=== PATIENT | male | born 1960 | race Caucasian/White ===

== ENCOUNTER 2018-12-25 15:13 | Emergency (ER) | payer SELFPAY ==
[~2018-12-25] VITALS: Ht 175.3 cm; Wt 70.0 kg
[2018-12-25 15:25] VITALS: BP 144/92
== END 2018-12-25 16:30 | disposition left against medical advice (07) ==
LOC: ER 15:36
DX: R41.82 Altered mental status, unspecified (principal); F19.10 Other psychoactive substance abuse, uncomplicated; F99 Mental disorder, not otherwise specified
CPT/HCPCS: 99283; Z7610

== ENCOUNTER 2019-01-14 12:38 | Emergency (ER) | payer SELFPAY ==
[~2019-01-14] VITALS: Ht 175.3 cm; Wt 65.9 kg
[2019-01-14 13:32] VITALS: BP 118/78
[2019-01-15] MEDS ORDERED: CLON0.5T12 PO (14:22)
[2019-01-15] MEDS ORDERED: TIZA2TAB4 PO (14:22)
[2019-01-15] MEDS ORDERED: TRAZ150T78 PO (14:22)
[2019-01-15] MEDS ORDERED: FLUO10CA25 PO (14:22)
[2019-01-15] MEDS ORDERED: PREG150C PO (14:22)
== END 2019-01-14 15:00 | disposition left against medical advice (07) ==
LOC: ER 14:13
DX: R07.81 Pleurodynia (principal); Z53.21 Procedure and treatment not carried out due to patient leaving prior to being seen by health care provider

== ENCOUNTER 2019-01-15 06:39 | Inpatient (IN) | payer MEDICARE ==
[~2019-01-15] VITALS: Ht 172.7 cm; Wt 62.6 kg
[2019-01-15] MEDS ORDERED: ALBUTEROL (0.083%) 2.5MG/3ML NEB HHN ONE (07:15)
[2019-01-15] MEDS ORDERED: HYDROCODONE/ACETAMINOPHEN 5/325MG TABLET PO ONE (07:15)
[2019-01-15] MEDS ORDERED: PREDNISONE 20MG TABLET PO ONE (07:15)
[2019-01-15 07:26] LABS: BASOPHILS % 0.5 % (0.0-2.0); EOSINOPHILS % 0.3 % (0.0-5.0); HEMATOCRIT. 40.3 % (42.0-52.0); HEMOGLOBIN. 13.8 g/dL (14.0-18.0); LYMPHOCYTES % 7.5 % (20.0-50.0); MEAN CORPUSCULAR HEMOGLOBIN 29.4 pg (28.0-32.0); MEAN CORPUSCULAR VOLUME 85.9 fL (80.0-94.0); MEAN PLATELET VOLUME 7.3 fl (7.4-10.4); MONOCYTES % 9.1 % (2.0-8.0); NEUTROPHILS % 82.6 % (40.0-76.0); PLATELET 253 x1000/uL (130-400); RED BLOOD CELL COUNT 4.69 mill/uL (4.7-6.1); RED CELL DISTRIBUTION WIDTH 14.7 % (11.6-14.6)
[2019-01-15 07:34] LABS: CHLORIDE 104 mEq/L (98-107)
[2019-01-15] MEDS ORDERED: MORPHINE SULFATE 4 MG/ML CPJ (NOT FOR IM USE) IV ONE (09:00)
[2019-01-15] MEDS ORDERED: ONDANSETRON HCL 4MG/2ML INJ IV ONE (09:00)
[2019-01-15] MEDS ORDERED: ACETAMINOPHEN 325MG TABLET PO PRN ×2 (10:30→10:45)
[2019-01-15] MEDS ORDERED: LORAZEPAM 0.5MG TABLET PO PRN ×2 (10:45→16:15)
[2019-01-15] MEDS ORDERED: ZOLPIDEM TARTRATE 5MG TABLET PO PRN (10:45)
[2019-01-15] MEDS ORDERED: ONDANSETRON HCL 4MG/2ML INJ IV PRN (10:45)
[2019-01-15] MEDS ORDERED: MAGNESIUM/ALUMINUM HYDROXIDE/SIMETHICONE 30ML UDC PO PRN (10:45)
[2019-01-15] MEDS ORDERED: NITROGLYCERIN 0.4MG TABLET SL SL PRN (10:45)
[2019-01-15] MEDS ORDERED: GUAIFENESIN 200MG/10ML SUGAR FREE UDC PO PRN (10:45)
[2019-01-15] MEDS ORDERED: DOCUSATE SODIUM 100MG CAPSULE PO PRN (10:45)
[2019-01-15] MEDS ORDERED: CLONIDINE 0.1MG TABLET PO PRN (10:45)
[2019-01-15] MEDS ORDERED: IPRATROPIUM/ALBUTEROL 0.5-3(2.5)MG/3ML NEB INH PRN (10:45)
[2019-01-15] MEDS ORDERED: DIPHENHYDRAMINE 50MG/ML VIAL IV PRN (10:45)
[2019-01-15 12:00] VITALS: BP 111/74
[2019-01-15] MEDS: TRAMADOL 50MG TABLET PO PRN ×2 (12:43→22:09)
[2019-01-15] MEDS: ENOXAPARIN 40MG/0.4ML SYR SUBCUT SCH (12:44)
[2019-01-15] MEDS ORDERED: TIZA2TAB4 PO (14:22)
[2019-01-15] MEDS ORDERED: CLON0.5T12 PO (14:22)
[2019-01-15] MEDS ORDERED: TRAZ150T78 PO (14:22)
[2019-01-15] MEDS ORDERED: FLUO10CA25 PO (14:22)
[2019-01-15] MEDS ORDERED: PREG150C PO (14:22)
[2019-01-15] MEDS: LIDOCAINE 5% PATCH TOP SCH ×2 (14:35→21:00)
[2019-01-15] MEDS: KETOROLAC 15MG/ML VIAL IV PRN ×2 (15:03→23:30)
[2019-01-15 15:33] VITALS: BP 111/74
[2019-01-15 16:00] VITALS: BP 119/76
[2019-01-15] MEDS: NICOTINE 14MG PATCH TD SCH (18:24)
[2019-01-15 19:27] LABS: *AMPHETAMINES SCREEN URINE PRESUMTIVE POSITIVE (NEGATIVE); *BARBITURATES SCREEN URINE NEGATIVE (NEGATIVE); *BENZODIAZEPINES SCREEN URINE NEGATIVE (NEGATIVE); *COCAINE SCREEN URINE NEGATIVE (NEGATIVE); CANNABINOID URINE SCREEN PRESUMTIVE POSITIVE (NEGATIVE); METHADONE URINE SCREEN NEGATIVE (NEGATIVE); OPIATES URINE SCREEN PRESUMTIVE POSITIVE (NEGATIVE); PHENCYCLIDINE URINE SCREEN NEGATIVE (NEGATIVE)
[2019-01-15 20:00] VITALS: BP 106/66
[2019-01-15] MEDS ORDERED: LEVOFLOXACIN 750MG PREMIX 150 ML IV SCH (20:00)
[2019-01-15] MEDS: GUAIFENESIN/DM 600MG/30MG ER TAB 12HR PO SCH (20:50)
[2019-01-15] MEDS: FAMOTIDINE 20MG TABLET PO SCH (20:50)
[2019-01-16] VITALS: BP 112/76
[2019-01-16] MEDS: IPRATROPIUM/ALBUTEROL 0.5-3(2.5)MG/3ML NEB HHN SCH ×4 (01:03→14:34)
[2019-01-16 04:00] VITALS: BP 121/73
[2019-01-16 08:00] VITALS: BP 120/86
[2019-01-16] MEDS: LIDOCAINE 5% PATCH TOP SCH (09:00)
[2019-01-16] MEDS: FAMOTIDINE 20MG TABLET PO SCH (09:42)
[2019-01-16] MEDS: NICOTINE 14MG PATCH TD SCH (09:42)
[2019-01-16] MEDS: GUAIFENESIN/DM 600MG/30MG ER TAB 12HR PO SCH (09:42)
[2019-01-16] MEDS: KETOROLAC 15MG/ML VIAL IV PRN (09:47)
[2019-01-16 13:17] VITALS: BP 117/75
[2019-01-16] MEDS: ENOXAPARIN 40MG/0.4ML SYR SUBCUT SCH (14:19)
[2019-01-16] MEDS ORDERED: LORAZEPAM 1MG TABLET PO PRN (16:17)
== END 2019-01-16 16:33 | disposition home health service (06) | DRG 199 ==
LOC: ER 06:39 → 6WST 09:24 → EDBEDREQ 09:25 → ENRESERV 09:45 → SUPCPDRO 10:33
PROVIDERS: ADMIT Internal Medicine; ATTEND Internal Medicine
DX: S27.0XXA Traumatic pneumothorax, initial encounter (principal); J96.00 Acute respiratory failure, unspecified whether with hypoxia or hypercapnia; S22.41XA Multiple fractures of ribs, right side, initial encounter for closed fracture; E44.1 Mild protein-calorie malnutrition; E87.1 Hypo-osmolality and hyponatremia; J98.11 Atelectasis; Y04.2XXA Assault by strike against or bumped into by another person, initial encounter; F15.10 Other stimulant abuse, uncomplicated; D64.9 Anemia, unspecified; B19.20 Unspecified viral hepatitis C without hepatic coma; G40.909 Epilepsy, unspecified, not intractable, without status epilepticus; F17.210 Nicotine dependence, cigarettes, uncomplicated; T79.7XXA Traumatic subcutaneous emphysema, initial encounter; Y93.89 Activity, other specified; Y92.89 Other specified places as the place of occurrence of the external cause; Y99.8 Other external cause status; Z68.21 Body mass index [BMI] 21.0-21.9, adult; Z71.6 Tobacco abuse counseling
CPT/HCPCS: 36415; 70110; 71045; 71111; 71250; 80048; 80061; 80076; 80305; 83036; 93970; 94640; 96374; 97162; 97166; 99285; J1200; J1650; J1885; J1956; J2270; J2405; J7050; J7512; J7611; J7620

== ENCOUNTER 2020-05-23 10:34 | Emergency (ER) | payer MEDICARE ==
[~2020-05-23] VITALS: Ht 175.3 cm; Wt 66.0 kg
[~2020-05-23 10:34] MED LIST: CLON0.5T4 PO; FLUO10CA25 PO; PREG150C PO; TIZA2TAB5 PO; TRAZ150T78 PO
[2020-05-23] MEDS ORDERED: KETOROLAC 30MG/ML VIAL IM ONE (11:00)
[2020-05-23 11:20] VITALS: BP 110/60
== END 2020-05-23 11:21 | disposition home or self-care (01) ==
LOC: ER 10:34
DX: M79.671 Pain in right foot (principal); E11.9 Type 2 diabetes mellitus without complications; J44.1 Chronic obstructive pulmonary disease with (acute) exacerbation; Z88.2 Allergy status to sulfonamides; Z88.9 Allergy status to unspecified drugs, medicaments and biological substances; Z79.899 Other long term (current) drug therapy; Z98.890 Other specified postprocedural states
CPT/HCPCS: 82962; 93005; 96372; 99283; J1885

== ENCOUNTER 2020-05-23 15:55 | Emergency (ER) | payer MEDICARE ==
[~2020-05-23] VITALS: Ht 172.7 cm; Wt 67.0 kg
[2020-05-23 16:17] VITALS: BP 129/82
== END 2020-05-23 17:40 | disposition home or self-care (01) ==
LOC: ER 15:55
DX: M79.671 Pain in right foot (principal); G20 Parkinson's disease; F41.9 Anxiety disorder, unspecified; Z76.0 Encounter for issue of repeat prescription; Z00.00 Encounter for general adult medical examination without abnormal findings
CPT/HCPCS: 99283